=== PATIENT | female | born 1995 | race Caucasian/White ===

== ENCOUNTER 2021-08-29 20:57 | Emergency (ER) ==
[~2021-08-29] VITALS: Ht 147.3 cm; Wt 60.5 kg
[2021-08-29 20:58] VITALS: BP 117/76
== END 2021-08-30 00:25 | disposition left against medical advice (07) ==
LOC: M ED 20:57
DX: Z53.21 Procedure and treatment not carried out due to patient leaving prior to being seen by health care provider (principal)

== ENCOUNTER → 2022-04-11 | Outpatient (REF) | payer OTHER | LOC: M LAB REF 12:29 | PROVIDERS: ATTEND Physician Assistant | DX: R05.9 Cough, unspecified (principal) ==

== ENCOUNTER 2022-09-03 11:24 | Outpatient (CLI) | payer OTHER ==
[~2022-09-03] VITALS: Ht 147.3 cm; Wt 60.4 kg
[2022-09-03 11:42] VITALS: BP 83/45
[2022-09-03 11:43] VITALS: BP 95/50
[2022-09-03 11:47] VITALS: BP 97/51
[2022-09-03] MEDS ORDERED: PRENTAB9 PO (11:59)
[2022-09-03] MEDS ORDERED: DOXE150C PO (11:59)
[2022-09-03] MEDS ORDERED: PRAZ1CAP PO (11:59)
[2022-09-03] MEDS ORDERED: LEXA5TAB13 PO (11:59)
[2022-09-03] MEDS ORDERED: HOME MED LIST COMPLETE! XX SCH (12:00)
[2022-09-03 13:00] LABS: HEMATOCRIT 33.8 % (36.0-47.0); HEMOGLOBIN 11.5 g/dl (12.0-15.5); MEAN CORPUSCULAR HEMOGLOBIN 30.1 pg (27.0-33.0); MEAN CORPUSCULAR VOLUME 88.5 fl (80.0-96.0); PLATELET COUNT, AUTOMATED 169 10^3/uL (150-450); RED BLOOD COUNT 3.82 10^6/uL (4.00-5.40); WHITE BLOOD COUNT 10.1 10^3/uL (4.0-10.0)
[2022-09-03] MEDS ORDERED: FLUCONAZOLE 50MG TABLET PO ONE (13:40)
[2022-09-03 14:04] VITALS: BP 98/57
== END 2022-09-03 14:04 | disposition home or self-care (01) ==
LOC: M LDO 11:24
PROVIDERS: ATTEND Registered Nurse
DX: O23.592 Infection of other part of genital tract in pregnancy, second trimester (principal); Z3A.25 25 weeks gestation of pregnancy; Z91.040 Latex allergy status
CPT/HCPCS: 36415; 59025; 76815; 81000; 81015; 85027; 87086; G0378; G0463

== ENCOUNTER 2022-09-04 08:49 | Outpatient (CLI) | payer OTHER ==
[~2022-09-04] VITALS: Ht 149.9 cm; Wt 60.0 kg
[~2022-09-04 08:49] MED LIST: DOXE150C PO; LEXA5TAB13 PO; PRAZ1CAP PO; PRENTAB9 PO
[2022-09-04 09:00] VITALS: BP 106/67
[2022-09-04] MEDS ORDERED: HOME MED LIST COMPLETE! XX SCH (09:15)
[2022-09-04] MEDS ORDERED: LR 1,000 ML IV ONE (10:00)
[2022-09-04 10:07] VITALS: BP 101/58
[2022-09-04 10:28] LABS: HEMATOCRIT 33.5 % (36.0-47.0); HEMOGLOBIN 11.3 g/dl (12.0-15.5); MEAN CORPUSCULAR HEMOGLOBIN 30.4 pg (27.0-33.0); MEAN CORPUSCULAR HGB CONC 33.7 g/dl (32.0-36.5); MEAN CORPUSCULAR VOLUME 90.1 fl (80.0-96.0); PLATELET COUNT, AUTOMATED 169 10^3/uL (150-450); RED BLOOD COUNT 3.72 10^6/uL (4.00-5.40)
[2022-09-04 12:06] LABS: BLOOD UREA NITROGEN 5 MG/DL (7-18); CALCIUM LEVEL 8.6 MG/DL (8.5-10.1); CARBON DIOXIDE LEVEL 25 MEQ/L (21-32); CHLORIDE LEVEL 106 MEQ/L (98-107); CREATININE FOR GFR 0.42 MG/DL (0.55-1.30); GLOMERULAR FILTRATION RATE > 60.0 (>60); GLUCOSE, FASTING 80 MG/DL (70-100); POTASSIUM SERUM 3.6 MEQ/L (3.5-5.1); SODIUM LEVEL 137 MEQ/L (136-145)
[2022-09-04 12:07] LABS: ALBUMIN 2.9 GM/DL (3.2-5.2); ALT/SGPT 12 U/L (12-78); BILIRUBIN,TOTAL 0.3 MG/DL (0.2-1.0); TOTAL PROTEIN 5.9 GM/DL (6.4-8.2)
== END 2022-09-04 11:08 | disposition home or self-care (01) ==
LOC: M LDO 08:49
PROVIDERS: ATTEND Advanced Practice Midwife
DX: O26.893 Other specified pregnancy related conditions, third trimester (principal); R10.9 Unspecified abdominal pain; Z3A.25 25 weeks gestation of pregnancy; O99.282 Endocrine, nutritional and metabolic diseases complicating pregnancy, second trimester; E86.0 Dehydration; Z91.040 Latex allergy status
CPT/HCPCS: 36415; 59025; 80053; 81002; 85027; 96360; G0463

== ENCOUNTER 2022-09-18 17:19 | Outpatient (CLI) | payer OTHER ==
[~2022-09-18] VITALS: Ht 147.3 cm; Wt 62.3 kg
[2022-09-18 17:34] VITALS: BP 122/59
== END 2022-09-18 19:22 | disposition home or self-care (01) ==
LOC: M LDO 17:19
PROVIDERS: ATTEND Obstetrics & Gynecology
DX: O23.592 Infection of other part of genital tract in pregnancy, second trimester (principal); Z3A.27 27 weeks gestation of pregnancy; Z91.040 Latex allergy status
CPT/HCPCS: 59025; G0463

== ENCOUNTER 2022-10-23 08:33 | Outpatient (CLI) | payer OTHER ==
[~2022-10-23] VITALS: Ht 147.3 cm; Wt 63.0 kg
[2022-10-23 08:58] VITALS: BP 89/51
[2022-10-23 09:09] VITALS: BP 72/38
[2022-10-23] MEDS ORDERED: TUMS500C PO (09:25)
[2022-10-23 09:26] VITALS: BP 84/48
[2022-10-23] MEDS ORDERED: ACET325C5 PO (09:26)
[2022-10-23 09:40] VITALS: BP 82/47
[2022-10-23] MEDS ORDERED: HOME MED LIST COMPLETE! XX SCH (09:40)
[2022-10-23 10:12] LABS: HEMATOCRIT 30.6 % (36.0-47.0); HEMOGLOBIN 10.5 g/dl (12.0-15.5); MEAN CORPUSCULAR HEMOGLOBIN 29.7 pg (27.0-33.0); MEAN CORPUSCULAR HGB CONC 34.3 g/dl (32.0-36.5); MEAN CORPUSCULAR VOLUME 86.4 fl (80.0-96.0); PLATELET COUNT, AUTOMATED 165 10^3/uL (150-450); RED BLOOD COUNT 3.54 10^6/uL (4.00-5.40); WHITE BLOOD COUNT 9.4 10^3/uL (4.0-10.0)
[2022-10-23 10:23] LABS: INR 0.95; PROTHROMBIN TIME 12.9 SECONDS (12.5-14.5)
[2022-10-23 10:24] LABS: PARTIAL THROMBOPLASTIN TIME 25.8 SECONDS (24.8-34.2)
[2022-10-23 10:35] VITALS: BP 111/60
[2022-10-23 13:02] LABS: GC DNA AMPLIFICATION NEGATIVE (NEGATIVE)
== END 2022-10-23 10:45 | disposition home or self-care (01) ==
LOC: M LDO 08:33
PROVIDERS: ATTEND Advanced Practice Midwife
DX: O23.593 Infection of other part of genital tract in pregnancy, third trimester (principal); Z3A.32 32 weeks gestation of pregnancy; O99.013 Anemia complicating pregnancy, third trimester
CPT/HCPCS: 36415; 59025; 76815; 76820; 81000; 81015; 85027; 85384; 85610; 85730; 87086; 87810; 87850; G0378; G0463

== ENCOUNTER 2022-11-20 12:17 | Outpatient (CLI) | payer OTHER ==
[~2022-11-20] VITALS: Ht 147.3 cm; Wt 60.4 kg
[~2022-11-20 12:17] MED LIST changes: +ACET325C5 PO; +TUMS500C PO
[2022-11-20] MEDS ORDERED: ABIL20TA5 PO (12:53)
[2022-11-20 12:55] VITALS: BP 106/61
[2022-11-20] MEDS ORDERED: HOME MED LIST COMPLETE! XX SCH (12:55)
[2022-11-20 14:10] LABS: HEMOGLOBIN 11.7 g/dl (12.0-15.5); MEAN CORPUSCULAR HEMOGLOBIN 29.7 pg (27.0-33.0); MEAN CORPUSCULAR HGB CONC 34.4 g/dl (32.0-36.5); MEAN CORPUSCULAR VOLUME 86.3 fl (80.0-96.0); PLATELET COUNT, AUTOMATED 140 10^3/uL (150-450); RED BLOOD COUNT 3.94 10^6/uL (4.00-5.40); WHITE BLOOD COUNT 9.8 10^3/uL (4.0-10.0)
== END 2022-11-20 15:02 | disposition home or self-care (01) ==
LOC: M LDO 12:17
PROVIDERS: ATTEND Registered Nurse
DX: O21.2 Late vomiting of pregnancy (principal); O76 Abnormality in fetal heart rate and rhythm complicating labor and delivery; Z3A.36 36 weeks gestation of pregnancy; O47.03 False labor before 37 completed weeks of gestation, third trimester; Z91.040 Latex allergy status; Z79.899 Other long term (current) drug therapy
CPT/HCPCS: 36415; 59025; 85027; 86850; 86900; 86901; G0463

== ENCOUNTER 2022-11-28 18:10 | Inpatient (IN) | payer OTHER ==
[~2022-11-28] VITALS: Ht 147.3 cm; Wt 61.8 kg
[~2022-11-28 18:10] MED LIST changes: +ABIL20TA5 PO
[2022-11-28] MEDS ORDERED: HOME MED LIST COMPLETE! XX SCH ×2 (18:30→18:50)
[2022-11-28 18:32] VITALS: BP 116/56
[2022-11-28] MEDS ORDERED: PRAZ2CAP PO (18:47)
[2022-11-28] MEDS ORDERED: LEXA1TAB2 PO (18:47)
[2022-11-28] MEDS ORDERED: ABIL1TAB11 PO (18:47)
[2022-11-28] MEDS ORDERED: DOXE25CA PO (18:47)
[2022-11-28] MEDS ORDERED: DOXE75CA2 PO (19:15)
[2022-11-28] MEDS ORDERED: OXYTOCIN DRIP 30 UNITS in IV 1 EA IV PRN ×4 (19:50)
[2022-11-28] MEDS ORDERED: LR 1,000 ML IV SCH (19:50)
[2022-11-28] MEDS ORDERED: METHYLERGONOVINE MALEATE 0.2 MG/ML VIAL (J2210) IM PRN (19:50)
[2022-11-28] MEDS ORDERED: LIDOCAINE 1% MDV 20ML VIAL INFIL PRN (19:50)
[2022-11-28] MEDS ORDERED: TRANEXAMIC ACID INJection 1,000 MG in NS 100 ML IV PRN (19:50)
[2022-11-28 20:31] LABS: HEMATOCRIT 36.9 % (36.0-47.0); HEMOGLOBIN 12.7 g/dl (12.0-15.5); MEAN CORPUSCULAR HEMOGLOBIN 29.2 pg (27.0-33.0); MEAN CORPUSCULAR HGB CONC 34.4 g/dl (32.0-36.5); MEAN CORPUSCULAR VOLUME 84.8 fl (80.0-96.0); PLATELET COUNT, AUTOMATED 163 10^3/uL (150-450); RED BLOOD COUNT 4.35 10^6/uL (4.00-5.40); WHITE BLOOD COUNT 11.4 10^3/uL (4.0-10.0)
[2022-11-28] MEDS ORDERED: DOXEPIN 25 MG CAP PO SCH (21:00)
[2022-11-28] MEDS ORDERED: PRAZOSIN 1 MG CAP PO SCH (21:00)
[2022-11-28 21:01] VITALS: BP 107/67
[2022-11-28 21:02] VITALS: BP 107/67
[2022-11-29 06:10] VITALS: BP 101/54
[2022-11-29] MEDS ORDERED: ESCITALOPRAM OXALATE 10 MG TAB (LEXAPRO) PO SCH (09:00)
== END 2022-11-29 07:39 | disposition home or self-care (01) | DRG 833 ==
LOC: M LDO 18:10 → M LDI 19:52
PROVIDERS: ADMIT Obstetrics & Gynecology; ATTEND Obstetrics & Gynecology
DX: O47.1 False labor at or after 37 completed weeks of gestation (principal); Z3A.37 37 weeks gestation of pregnancy; Z91.040 Latex allergy status; Z79.899 Other long term (current) drug therapy

== ENCOUNTER 2022-12-04 12:53 | Outpatient (CLI) | payer OTHER ==
[~2022-12-04] VITALS: Ht 147.3 cm; Wt 62.0 kg
[~2022-12-04 12:53] MED LIST changes: +ABIL1TAB11 PO; +DOXE25CA PO; +DOXE75CA2 PO; +LEXA1TAB2 PO; +PRAZ2CAP PO
[2022-12-04 13:17] VITALS: BP 119/67
[2022-12-04] MEDS ORDERED: TUMS750C20 PO (14:03)
== END 2022-12-04 14:55 | disposition home or self-care (01) ==
LOC: M LDO 12:53
PROVIDERS: ATTEND Advanced Practice Midwife
DX: O47.1 False labor at or after 37 completed weeks of gestation (principal); Z3A.38 38 weeks gestation of pregnancy; Z91.040 Latex allergy status; Z79.899 Other long term (current) drug therapy
CPT/HCPCS: 59025; G0378; G0463

== ENCOUNTER 2022-12-09 09:05 | Outpatient (CLI) | payer OTHER ==
[~2022-12-09] VITALS: Ht 147.3 cm; Wt 59.1 kg
[~2022-12-09 09:05] MED LIST changes: +TUMS750C20 PO
[2022-12-09] MEDS ORDERED: HOME MED LIST COMPLETE! XX SCH (09:30)
[2022-12-09 09:38] VITALS: BP 114/74
[2022-12-09] MEDS ORDERED: LACTATED RINGER'S 1000 ML IV STA (10:23)
[2022-12-09] MEDS ORDERED: LR 1,000 ML IV SCH (10:25)
[2022-12-09 11:04] VITALS: BP 100/67
== END 2022-12-09 12:30 | disposition home or self-care (01) ==
LOC: M LDO 09:05
PROVIDERS: ATTEND Advanced Practice Midwife
DX: O47.1 False labor at or after 37 completed weeks of gestation (principal); Z3A.38 38 weeks gestation of pregnancy; Z91.040 Latex allergy status
CPT/HCPCS: 59025; 96360; G0378; G0463

== ENCOUNTER 2022-12-11 08:36 | Inpatient (IN) | payer OTHER ==
[~2022-12-11] VITALS: Ht 147.3 cm; Wt 62.6 kg
[2022-12-11] VITALS (21 sets, daily range): BP systolic 90–124; BP diastolic 50–79
[2022-12-11] MEDS ORDERED: OXYC1TAB23 PO (09:10)
[2022-12-11] MEDS ORDERED: ABIL20TA5 PO (09:10)
[2022-12-11] MEDS ORDERED: CARBOPROST TROMETHAMINE 250 MCG/ML AMP IM PRN (09:25)
[2022-12-11] MEDS ORDERED: LR 1,000 ML IV SCH (09:25)
[2022-12-11] MEDS ORDERED: TRANEXAMIC ACID INJection 1,000 MG in NS 100 ML IV PRN (09:25)
[2022-12-11] MEDS ORDERED: OXYTOCIN DRIP 30 UNITS in IV 1 EA IV PRN (09:25)
[2022-12-11] MEDS ORDERED: LACTATED RINGER'S 1000 ML IV PRN (09:25)
[2022-12-11] MEDS ORDERED: OXYTOCIN DRIP 30 UNITS in IV 1 EA IV SCH (09:25)
[2022-12-11] MEDS ORDERED: METHYLERGONOVINE MALEATE 0.2 MG/ML VIAL (J2210) IM PRN (09:25)
[2022-12-11] MEDS ORDERED: LIDOCAINE 1% MDV 20ML VIAL INFIL PRN (09:25)
[2022-12-11] MEDS ORDERED: HOME MED LIST COMPLETE! XX SCH (09:30)
[2022-12-11] MEDS: LR 1,000 ML IV SCH ×2 (10:18→13:07)
[2022-12-11 10:21] LABS: HEMATOCRIT 35.4 % (36.0-47.0); HEMOGLOBIN 12.1 g/dl (12.0-15.5); MEAN CORPUSCULAR HEMOGLOBIN 29.3 pg (27.0-33.0); MEAN CORPUSCULAR HGB CONC 34.2 g/dl (32.0-36.5); MEAN CORPUSCULAR VOLUME 85.7 fl (80.0-96.0); PLATELET COUNT, AUTOMATED 119 10^3/uL (150-450); RED BLOOD COUNT 4.13 10^6/uL (4.00-5.40); WHITE BLOOD COUNT 8.1 10^3/uL (4.0-10.0)
[2022-12-11] MEDS ORDERED: ePHEDrine SULFATE 25 MG/5 ML(5MG/ML) SYRINGE IVP PRN (13:20)
[2022-12-11] MEDS ORDERED: LR 500 ML IV PRN (13:20)
[2022-12-11] MEDS ORDERED: EPIDURAL/PCA KEYS XX PRN (13:20)
[2022-12-11] MEDS ORDERED: diphenhydrAMINE 50MG/ML VIAL IV PRN (13:20)
[2022-12-11] MEDS ORDERED: NALOXONE INJ 0.4MG/1ML VIAL IV PRN (13:20)
[2022-12-11] MEDS ORDERED: FENTANYL/ROPIVACAINE/NACL BAG 100 ML EPIDURAL SCH (13:20)
[2022-12-11] MEDS ORDERED: ONDANSETRON 4MG 2ML VIAL IV PRN (13:20)
[2022-12-11] MEDS ORDERED: FENTANYL 2MCG/ML ROPIVACAINE 0.2% IN 0.9% NACL 100ML IVBAG As Ordered ONE (13:21)
[2022-12-11] MEDS ORDERED: DIBUCAINE 1% OINTMENT 30GM TOP PRN (15:50)
[2022-12-11] MEDS ORDERED: RHOGAM 300MCG (1500IU) INJ IM SCH (15:50)
[2022-12-11] MEDS ORDERED: DOCUSATE SODIUM 100MG CAPSULE PO PRN (15:50)
[2022-12-11] MEDS: DOXEPIN 25 MG CAP PO SCH (20:32)
[2022-12-11] MEDS: ARIPiprazole 10 MG TAB PO SCH (20:32)
[2022-12-11] MEDS: PRAZOSIN 1 MG CAP PO SCH (20:36)
[2022-12-11] MEDS: IBUPROFEN 800 MG TAB PO PRN (23:44)
[2022-12-12 06:00] VITALS: BP 122/62
[2022-12-12] MEDS: ACETAMINOPHEN TAB 650MG DOSE (2X325MG) PO PRN ×2 (06:40→22:02)
[2022-12-12] MEDS: ESCITALOPRAM OXALATE 10 MG TAB (LEXAPRO) PO SCH (09:16)
[2022-12-12] MEDS: PRENATAL VITAMINS CHEWABLE TABLET PO SCH (09:16)
[2022-12-12] MEDS: IBUPROFEN 800 MG TAB PO PRN (15:39)
[2022-12-12 18:00] VITALS: BP 127/64
[2022-12-12] MEDS: DOXEPIN 25 MG CAP PO SCH (21:08)
[2022-12-12] MEDS: ARIPiprazole 10 MG TAB PO SCH (21:09)
[2022-12-12 21:10] VITALS: BP 127/64
[2022-12-12] MEDS: PRAZOSIN 1 MG CAP PO SCH (21:10)
[2022-12-13] MEDS: IBUPROFEN 800 MG TAB PO PRN (03:07)
[2022-12-13 05:45] VITALS: BP 115/69
[2022-12-13] MEDS: PRENATAL VITAMINS CHEWABLE TABLET PO SCH (08:43)
[2022-12-13] MEDS: ESCITALOPRAM OXALATE 10 MG TAB (LEXAPRO) PO SCH (08:43)
[2022-12-13] MEDS: ACETAMINOPHEN TAB 650MG DOSE (2X325MG) PO PRN (08:43)
[2022-12-13] MEDS ORDERED: MEASLES,MUMPS,RUBELLA VACCINE INJ (MMR-II) SC.IMMUN ONE (09:00)
== END 2022-12-13 12:30 | disposition home or self-care (01) | DRG 807 ==
LOC: M LDI 08:36 → M OBS 18:59
PROVIDERS: ADMIT Registered Nurse; ATTEND Registered Nurse
PROC: 10E0XZZ Delivery of Products of Conception, External Approach (ICD-10-PCS; principal; 2022-12-11)
PROC: 3E033VJ Introduction of Other Hormone into Peripheral Vein, Percutaneous Approach (ICD-10-PCS; 2022-12-11)
PROC: 10907ZC Drainage of Amniotic Fluid, Therapeutic from Products of Conception, Via Natural or Artificial Opening (ICD-10-PCS; 2022-12-11)
DX: O99.344 Other mental disorders complicating childbirth (principal); Z37.0 Single live birth; F31.9 Bipolar disorder, unspecified; F41.9 Anxiety disorder, unspecified; F43.10 Post-traumatic stress disorder, unspecified; Z3A.39 39 weeks gestation of pregnancy; O69.81X0 Labor and delivery complicated by cord around neck, without compression, not applicable or unspecified

== ENCOUNTER 2023-01-22 12:26 | Emergency (ER) | payer OTHER ==
[~2023-01-22] VITALS: Ht 147.3 cm; Wt 52.3 kg
[~2023-01-22 12:26] MED LIST changes: +OXYC1TAB23 PO
[2023-01-22] MEDS ORDERED: PROMETHAZINE 25MG/ML 1ML VIAL IV ONE (14:45)
[2023-01-22 15:14] LABS: BASO % 0.2 % (0.0-1.0); EOS # 0.1 10^3/uL (0.0-0.5); HEMATOCRIT 39.4 % (36.0-47.0); HEMOGLOBIN 12.7 g/dl (12.0-15.5); LYMPH # 0.9 10^3/uL (1.5-5.0); LYMPH % 20.8 % (24.0-44.0); MEAN CORPUSCULAR HEMOGLOBIN 28.2 pg (27.0-33.0); MEAN CORPUSCULAR HGB CONC 32.2 g/dl (32.0-36.5); MEAN CORPUSCULAR VOLUME 87.6 fl (80.0-96.0); MONO # 0.5 10^3/uL (0.0-0.8); MONO % 12.2 % (2.0-8.0); NEUTROPHILS # 2.7 10^3/uL (1.5-8.5); NEUTROPHILS % 64.8 % (36.0-66.0); PLATELET COUNT, AUTOMATED 159 10^3/uL (150-450); WHITE BLOOD COUNT 4.1 10^3/uL (4.0-10.0)
[2023-01-22 15:33] LABS: LIPASE 27 U/L (12-53)
[2023-01-22 15:34] LABS: ALBUMIN 3.7 G/DL (3.2-5.2); ALKALINE PHOSPHATASE 52 U/L (46-116); ALT/SGPT 16 U/L (7.0-40); AST/SGOT 19 U/L (<34); BILIRUBIN,DIRECT 0.2 MG/DL (<0.4); BILIRUBIN,TOTAL 0.7 MG/DL (0.3-1.2); BLOOD UREA NITROGEN 11 MG/DL (9-23); CALCIUM LEVEL 8.9 MG/DL (8.5-10.1); CARBON DIOXIDE LEVEL 27 MMOL/L (20-31); CHLORIDE LEVEL 105 MMOL/L (98-107); CREATININE FOR GFR 0.68 MG/DL (0.55-1.30); GLOMERULAR FILTRATION RATE > 60.0 (>60); GLUCOSE, FASTING 87 MG/DL (60-100); POTASSIUM SERUM 3.8 MMOL/L (3.5-5.1); SODIUM LEVEL 139 MMOL/L (136-145); TOTAL PROTEIN 6.2 G/DL (5.7-8.2)
[2023-01-22 16:47] VITALS: BP 101/59
[2023-01-22] MEDS ORDERED: PROM25TA12 PO (18:01)
[2023-01-22] MEDS ORDERED: COLA100C5 PO (18:01)
[2023-01-22] MEDS ORDERED: MIRA3350 PO (18:01)
== END 2023-01-22 18:15 | disposition home or self-care (01) ==
LOC: M ED 12:26
DX: K59.00 Constipation, unspecified (principal); N83.01 Follicular cyst of right ovary; F17.290 Nicotine dependence, other tobacco product, uncomplicated; Z79.899 Other long term (current) drug therapy; Z91.040 Latex allergy status
CPT/HCPCS: 74018; 76856; 80048; 80076; 81001; 83690; 84702; 85025; 96374; 99284; J2550

== ENCOUNTER 2023-11-29 08:40 | Emergency (ER) | payer OTHER ==
[~2023-11-29] VITALS: Ht 147.3 cm; Wt 41.8 kg
[~2023-11-29 08:40] MED LIST changes: +COLA100C5 PO; +MIRA3350 PO; +ONDANSETRON 4MG ORAL DISINTEGRATING TAB SL SCH; +PROM25TA12 PO
[2023-11-29] MEDS ORDERED: ONDANSETRON 4MG 2ML VIAL IV ONE ×2 (08:50→11:45)
[2023-11-29] MEDS ORDERED: NS 1,000 ML IV ONE ×3 (08:50→10:25)
[2023-11-29 09:21] LABS: BASO % 0.1 % (0.0-1.0); EOS % 0.1 % (0.0-3.0); HEMOGLOBIN 14.4 g/dl (12.0-15.5); LYMPH # 1.2 10^3/uL (1.5-5.0); LYMPH % 7.7 % (24.0-44.0); MEAN CORPUSCULAR HEMOGLOBIN 30.4 pg (27.0-33.0); MEAN CORPUSCULAR VOLUME 84.6 fl (80.0-96.0); MONO # 0.9 10^3/uL (0.0-0.8); MONO % 5.8 % (2.0-8.0); PLATELET COUNT, AUTOMATED 329 10^3/uL (150-450); RED BLOOD COUNT 4.73 10^6/uL (4.00-5.40); WHITE BLOOD COUNT 15.1 10^3/uL (4.0-10.0)
[2023-11-29 09:38] LABS: HCG, SERUM QUALITATIVE NEGATIVE (NEGATIVE); LIPASE 31 U/L (12-53)
[2023-11-29 09:40] LABS: AMYLASE 76 U/L (30-118)
[2023-11-29 09:41] LABS: ALKALINE PHOSPHATASE 45 U/L (46-116); ALT/SGPT 20 U/L (7.0-40); AST/SGOT 18 U/L (<34); BILIRUBIN,DIRECT 0.5 MG/DL (<0.4); BILIRUBIN,TOTAL 1.4 MG/DL (0.3-1.2); BLOOD UREA NITROGEN 23 MG/DL (9-23); CALCIUM LEVEL 10.5 MG/DL (8.5-10.1); CARBON DIOXIDE LEVEL 24 MMOL/L (20-31); CHLORIDE LEVEL 101 MMOL/L (98-107); GLOMERULAR FILTRATION RATE > 60.0 (>60); GLUCOSE, FASTING 128 MG/DL (60-100); POTASSIUM SERUM 3.6 MMOL/L (3.5-5.1); SODIUM LEVEL 137 MMOL/L (136-145); TOTAL PROTEIN 7.7 G/DL (5.7-8.2)
[2023-11-29] MEDS ORDERED: ONDANSETRON 4MG ORAL DISINTEGRATING TAB PO ONE (12:15)
[2023-11-29] MEDS ORDERED: ONDA4TAB6 PO (12:16)
[2023-11-29 12:43] VITALS: BP 127/62; TEMP 97.6; O2SAT 98
== END 2023-11-29 12:46 | disposition home or self-care (01) ==
LOC: EDBD 08:40 → M ED 08:40
DX: R07.9 Chest pain, unspecified (principal); R06.00 Dyspnea, unspecified; E11.9 Type 2 diabetes mellitus without complications; I10 Essential (primary) hypertension; F32.A Depression, unspecified; E78.5 Hyperlipidemia, unspecified; J44.9 Chronic obstructive pulmonary disease, unspecified; E03.9 Hypothyroidism, unspecified; N18.9 Chronic kidney disease, unspecified; Z79.899 Other long term (current) drug therapy; Z79.52 Long term (current) use of systemic steroids; Z79.4 Long term (current) use of insulin; Z88.2 Allergy status to sulfonamides; Z88.5 Allergy status to narcotic agent; Z88.8 Allergy status to other drugs, medicaments and biological substances
CPT/HCPCS: 36415; 80048; 80076; 81001; 82150; 83605; 83690; 84703; 85025; 87040; 87086; 93041; 99285; J2405

== ENCOUNTER 2023-11-29 21:22 | Emergency (ER) | payer OTHER ==
[~2023-11-29 21:22] MED LIST changes: +ONDA4TAB6 PO; -ONDANSETRON 4MG ORAL DISINTEGRATING TAB SL SCH
[2023-11-29 21:57] VITALS: BP 115/67; TEMP 98.7; O2SAT 100
== END 2023-11-29 22:43 | disposition left against medical advice (07) ==
LOC: M ED 21:22
DX: Z53.21 Procedure and treatment not carried out due to patient leaving prior to being seen by health care provider (principal)